=== PATIENT | male | born 1980 | race African-American/Black ===

== ENCOUNTER 2024-10-26 23:24 | Emergency (ER) | payer OTHER ==
[2024-10-26 23:30] VITALS: BP 125/80; PULSE 82; RESP 17; TEMP 97.6
[2024-10-26] MEDS ORDERED: RABIES VACCINE (PCEC)/PF 2.5 UNIT/VIAL IM ONE (23:57)
[2024-10-26] MEDS ORDERED: AMOX TR/POT CLAV 875MG/125MG TABLETS (FP) ONE (23:57)
[2024-10-26] MEDS ORDERED: IBUPROFEN 600 MG TABLET (FP) PO ONE (23:58)
[2024-10-26] MEDS: AMOX TR/POT CLAV 875MG/125MG TABLETS (FP) PO ONE (23:59)
[2024-10-26] MEDS: IBUPROFEN 600 MG TABLET (FP) PO ONE (23:59)
[2024-10-27] MEDS: DIPHTH,PERTUSS(ACELL),TET 0.5 ML DISP.SYRIN IM ONE (00:01)
[2024-10-27] MEDS ORDERED: LIDOCAINE HCL 1%, 10 MG/ML (20ML VIAL) ONE (00:03)
[2024-10-27 00:44] VITALS: BMI 25.8
[2024-10-27] MEDS: LIDOCAINE HCL 1%, 10 MG/ML (50 mL VIAL) SQ ONE (01:01)
[2024-10-27] MEDS: RABIES IMMUNE GLOBULIN 300 UNITS/1 ML VIAL IM ONE (01:01)
[2024-10-27] MEDS: RABIES VACCINE (PCEC)/PF 2.5 UNIT/VIAL IM ONE (01:09)
== END 2024-10-27 01:12 | disposition home or self-care (01) ==
LOC: JER 23:24
PROC: 0XQGXZZ Repair Right Wrist Region, External Approach (ICD-10-PCS; principal; 2024-10-26)
PROC: 3E0234Z Introduction of Serum, Toxoid and Vaccine into Muscle, Percutaneous Approach (ICD-10-PCS; 2024-10-26)
PROC: 3E0234Z Introduction of Serum, Toxoid and Vaccine into Muscle, Percutaneous Approach (ICD-10-PCS; 2024-10-26)
DX: S61.511A Laceration without foreign body of right wrist, initial encounter (principal); W54.0XXA Bitten by dog, initial encounter
CPT/HCPCS: 12001-25; 90375; 90471; 90675; 90715; 99284-25